=== PATIENT | male | born 1955 | race Caucasian/White ===

== ENCOUNTER → 2016-06-24 | Outpatient (CLI) | payer MEDICARE ==
[2015-07-20 17:18] VITALS: BP 114/72
--- NOTE | 2016-06-24 13:06 | KCIC ---
Examination: CT chest without contrast. HISTORY History of followup lung nodule COMPARISON 06/09/2015. TECHNIQUE Axial CT images of chest were performed without contrast. Coronal sagittal reformats were performed. Exposure: One or more of the following dose reduction technique were utilized for this examination: 1. Automated exposure control. 2.Adjustment of MA and /or KV according to patient size. 3. Use of iterative reconstruction technique. Findings : The central airways are patent. Coronary artery calcifications identified. No evidence of pericardial effusion identified. Mild aortic atherosclerosis. No radiologically significant mediastinal lymphadenopathy is identified. Tiny 3 millimeter pulmonary or lymph node in the right lung along the minor fissure grossly appears similar to prior exam. No evidence of pleural effusion or pneumothorax identified. The lungs are otherwise clear. 1.2 centimeter cystic density identified in the left lobe of the liver appears similar to prior exam. There is peripherally calcified density identified in the spleen grossly appears similar to prior exam probably calcified splenic cyst. No evidence of lytic or destructive lesion identified. IMPRESSION 1. Unchanged 3 millimeter pulmonary nodule or lymph node in the right lung. 2. Coronary artery calcifications. Electronically signed by: Adrián Carrillo (Jun 24, 2016 13:02:00)
== END | disposition home or self-care (01) ==
LOC: KCIC CT 08:51
PROVIDERS: ATTEND Internal Medicine Pulmonary Disease
DX: R91.1 Solitary pulmonary nodule (principal); F17.200 Nicotine dependence, unspecified, uncomplicated; I25.10 Atherosclerotic heart disease of native coronary artery without angina pectoris
CPT/HCPCS: 71250

== ENCOUNTER → 2017-06-30 | Outpatient (CLI) | payer MEDICARE | END | disposition home or self-care (01) | LOC: KCIC CT 10:33 | DX: I77.819 Aortic ectasia, unspecified site (principal); I25.10 Atherosclerotic heart disease of native coronary artery without angina pectoris | CPT/HCPCS: 71250 ==

== ENCOUNTER → 2018-07-04 | Outpatient (CLI) | payer MEDICARE ==
[2015-07-20 17:18] VITALS: BP 114/72
--- NOTE | 2018-07-04 14:45 | KCIC ---
Examination: CT chest without contrast HISTORY: History of lung nodule follow-up, COPD COMPARISON: 06/30/2017 TECHNIQUE: Axial CT images of the chest were performed without contrast. Coronal and sagittal reformats are performed. Exposure: One or more of the following individualized dose reduction techniques were utilized for this examination: 1. Automated exposure control 2. Adjustment of the mA and/or kV according to patient size 3. Use of iterative reconstruction technique FINDINGS: The visualized thyroid gland grossly appears unremarkable. The central airways are patent. The ascending aorta measures 3.8 cm in transverse dimension. The heart size grossly appears unremarkable. Coronary artery calcifications identified. No radiologically significant mediastinal lymphadenopathy is identified. There is a tiny 3 mm nodule identified in the left lingula of the lung. No evidence of pleural effusion or pneumothorax. The visualized liver demonstrates small cystic structure with the largest measuring 1.5 cm in the left lobe of the liver is similar to prior exam. Peripherally calcified density identified in the spleen probably calcified splenic cyst is similar to prior exam. Mild degenerative changes thoracic spine. IMPRESSION: 1. 3 mm nodule identified in the left lingula of the lung. Follow-up examination is recommended in one year. 2. Coronary artery calcifications. Mild ectatic ascending aorta. Electronically signed by: Adrián Carrillo MD (07/04/2018 2:40 PM) [id number]
== END | disposition home or self-care (01) ==
LOC: KCIC CT 12:35
PROVIDERS: ATTEND Internal Medicine Pulmonary Disease
DX: R91.1 Solitary pulmonary nodule (principal); I25.10 Atherosclerotic heart disease of native coronary artery without angina pectoris; I77.810 Thoracic aortic ectasia; F17.200 Nicotine dependence, unspecified, uncomplicated; J44.9 Chronic obstructive pulmonary disease, unspecified
CPT/HCPCS: 71250